=== PATIENT | male | born 1990 | race Two or more races ===

== ENCOUNTER 2018-10-22 12:21 | Day surgery (SDC) | payer OTHER ==
[2018-10-22] VITALS (10 sets, daily range): BP systolic 113–148; BP diastolic 64–83; PULSE 74–97; RESP 13–53; Ht 167.6 cm; Wt 91.1 kg
[~2018-10-22] VITALS: Ht 167.6 cm; Wt 91.1 kg
[2018-10-22] MEDS ORDERED: SOD CHLORIDE 0.9% 1,000 ML IV SCH (13:00)
--- NOTE | 2018-10-22 14:56 | PREAC ---
Date/Time of Note Date/Time of Note DATE: 10/22/18 TIME: 14:55 Anesthesia Eval and Record Evaluation Time Pre-Procedure Interview DATE: 10/22/18 TIME: 14:55 Age 28 Sex male NPO: 8 hrs Preoperative diagnosis back mass Planned procedure excision of back mass Past Medical History Past Medical History: Includes GI: Obesity Surgery & Anesthesia Issues No known issue Meds Anticoagulation: No Beta Nellie within 24 hr: No Reason Beta Nellie not given: Pt. not on B-Nellie No Active Prescriptions or Reported Meds Current Medications Sodium Chloride 1,000 ml @ 75 mls/hr [id number] IV Last administered on 10/22/18at 13:20; Admin Dose 75 MLS/HR; Start 10/22/18 at 13:00 Meds reviewed: Yes Allergies Coded Allergies: Penicillins (Verified Allergy, Unknown, 10/22/18) alcohol (Verified Allergy, Unknown, RASH HIVES, 10/22/18) Allergies Reviewed: Yes Labs/Studies Labs Reviewed: Reviewed by anesthesiologist Result Diagram: 10/22/18 1315 10/22/18 1315 Laboratory Tests 10/22/18 13:15 test: N/A Pre-procedure Exam Last vitals Vital Signs Date Temp Pulse Resp B/P (MAP) Pulse Ox O2 O2 Flow FiO2 Time Delivery Rate 10/22/18 98.4 78 16 133/82 99 Room Air 13:02 (99) Airway: Adequate mouth opening, Adequate thyromental dist Mallampati: Mallampati III Teeth: Normal Lung: Normal Heart: Normal ASA Physical Status ASA physical status: 2 Emergency: None Pre-operative Attestations Prior to commencing anesthesia and surgery, the patient was re-evaluated, there was verification of: *The patient's identity *The results of appropriate recent lab work and preoperative vital signs *The above evaluation not changing prior to induction *Anesthetic plan, risk benefits, alternative and complications discussed with patient/family; questions answered; patient/family understands, accepts and wishes to proceed. CALI ARENAS DO Oct 22, 2018 14:56
[2018-10-22] MEDS ORDERED: HYDROmorphONE 1 MG/5 ML IV SYRINGE IV PRN ×2 (15:00)
[2018-10-22] MEDS ORDERED: MIDAZOLAM 1 MG/ML 2 ML INJ ONE ×2 (15:02)
[2018-10-22] MEDS ORDERED: LIDOCAINE 1.5%/EPI MPF (SDV) 30 ML VIAL ONE (15:05)
[2018-10-22] MEDS ORDERED: BUPIVACAINE 0.25%/EPI (SDV) 30 ML INJ ONE (15:05)
[2018-10-22] MEDS ORDERED: BUPIVACAINE 0.25% (MPF) 30 ML INJ ONE (15:06)
[2018-10-22] MEDS ORDERED: LIDOCAINE 2% (SDV) 5 ML INJ ONE (15:12)
[2018-10-22] MEDS ORDERED: ETOMIDATE 20 MG INJ ONE (15:12)
[2018-10-22] MEDS ORDERED: KETAMINE (50 MG/ML) 10 ML VIAL ONE (15:12)
[2018-10-22] MEDS ORDERED: KETOROLAC 30 MG INJ ONE (15:16)
[2018-10-22] MEDS ORDERED: POLYMYXIN/BACITRACIN 1L IRRIG ONE (15:44)
[2018-10-22] MEDS ORDERED: CLINDAMYCIN 600 MG/D5W (PMX) 50 ML IVPB ONE (15:46)
[2018-10-22] MEDS ORDERED: BACITRACIN/POLYMYXIN 28.35 GM OINT TOP ONE (15:59)
--- NOTE | 2018-10-22 16:13 | PAC ---
Date/Time of Note Date/Time of Note DATE: 10/22/18 TIME: 16:13 Post-Anesthesia Notes Post-Anesthesia Note Last documented vital signs Vital Signs Date Temp Pulse Resp B/P (MAP) Pulse Ox O2 O2 Flow FiO2 Time Delivery Rate 10/22/18 97 79 19 110/55) 99 Room Air 1613 Activity: WNL Respiratory function: WNL Cardiovascular function: WNL Mental status: Baseline Pain reasonably controlled: Yes Hydration appropriate: Yes Nausea/Vomiting absent: Yes CALI ARENAS DO Oct 22, 2018 16:13
--- NOTE | 2018-10-22 16:15 | OPR ---
Date/Time of Note Date/Time of Note DATE: 10/22/18 TIME: 16:08 Operative Report Procedure Date: Oct 22, 2018 Preoperative Diagnosis Lower back mass Postoperative Diagnosis Lower back mass Operation/Procedure Performed 1. Excision of lower back mass 2. Creation of local advancement flaps 3. 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 He states that this had been present for the past 2 years. Recently he had undergone an incision and drainage, however the mass continues to return. On clinical exam he was diagnosed as having a possible epidermal inclusion cyst. He was scheduled for elective excision for symptom relief and definitive pathological diagnosis. All risks and benefits of the procedure including, but not limited to: Wound infection, excessive bleeding, prolonged wound healing, postoperative seroma/hematoma formation, mass recurrence, etc. were all explained to the patient in full detail. The patient fully understood and wished to proceed with the procedure. Informed consent was obtained. Procedure Description Patient was brought to the operating room and placed prone on the operating room table. Bilateral sequential compression devices were placed on both lower extremities. A dose of broad-spectrum perioperative intravenous antibiotics was given. After achieving adequate sedation a field block was performed by the anesthesiologist. The lower back was then prepped and draped in standard surgical fashion. An elliptical incision was made using a 15 blade scalpel encompassing the cyst and the prior incision and drainage site. Incision was taken down through the skin and into the subcutaneous tissues using Bovie electrocautery. There was a lot of fibrosis and chronic inflammation identified on until reaching the deep subcutaneous fat which appeared healthy. The specimen was then transected at its base and passed off the field. Marking stitch was used to mario the superior aspect. In the inferior aspect of the wo und cavity a possible sinus tract was identified and appeared to be coursing towards the midline gluteal cleft. Curettage was performed of the tract. The tract was cauterized using Bovie electrocautery. Local advancement flaps were then raised circumferentially to aid in tension-free closure. The wound cavity was then irrigated using antibiotic irrigation. Hemostasis was inspected for and noted to be total. To aid in wound regeneration and minimize the risk of infection, as well as further obliterate the possible sinus tract 1000 mg of acellular biological extracellular matrix was formed into a paced by mixing with 7 cc of normal saline and was injected into the possible sinus tract in the deep wound cavity. The deep tissues were then reapproximated using interrupted [2-0 Vicryl] sutures. The dermal layer was reapproximated using interrupted 3-0 Vicryl sutures. Further local anesthesia of 1% lidocaine with epinephrine was applied around the skin of the incision site. The skin was reapproximated using interrupted 2-0 nylon sutures in vertical mattress fashion such that the incision laid off the midline. Incision was then cleaned and sterile dressings were applied as well as bacitracin ointment up defaults. The patient was then awoken from anesthesia and transported to the recovery room in stable condition. All counts were correct at the end of the case 2. JAIRON NAZARIO MD Oct 22, 2018 16:15
[2018-10-22] MEDS ORDERED: KETOROLAC 30 MG INJ IV PRN (16:30)
[2018-10-22] MEDS ORDERED: HYDROCODONE/APAP (5/325) TAB PO PRN ×2 (16:30)
[2018-10-22] MEDS ORDERED: IBUPROFEN 600 MG TAB PO PRN (16:30)
[2018-10-22] MEDS ORDERED: ONDANSETRON 4 MG INJ IV PRN (16:30)
== END 2018-10-22 17:40 | disposition home or self-care (01) ==
LOC: SDS 12:21
PROVIDERS: ATTEND Surgery
DX: R22.2 Localized swelling, mass and lump, trunk (principal); L05.91 Pilonidal cyst without abscess; Z88.0 Allergy status to penicillin
CPT/HCPCS: 14000; 21930; 80053; 85025; 85610; 85730; 88307; J1885; J2250; Q4118; Z7512; Z7610